=== PATIENT | male | born 1970 ===

== ENCOUNTER 2025-02-12 15:39 | Emergency (ER) | payer OTHER ==
[~2025-02-12] VITALS: Ht 188 cm; Wt 112.9 kg
[2025-02-12 16:25] VITALS: BP 145/82
[2025-02-12 18:21] LABS: Source, Urine Clean Catch
[2025-02-12 18:29] LABS: Bilirubin, Urine Neg (Neg); Glucose Qualitative, Urine Neg (Neg); Ketones, Urine Neg (Neg); Leukocyte Esterase, Urine 2+ (Neg); Protein, Urine 3+ (Neg); Specific Gravity, Urine 1.015 (1.003-1.022); Urobilinogen, Urine NORM (Normal)
[2025-02-12 18:36] LABS: Color, Urine Yellow (P-Yellow)
[2025-02-12 18:37] LABS: Red Blood Cells, Urine TNTC /hpf (0-2)
== END 2025-02-12 19:48 | disposition home or self-care (01) ==
LOC: ER 15:39
PROVIDERS: Emergency Medicine
DX: T83.091A Other mechanical complication of indwelling urethral catheter, initial encounter (principal); Z88.5 Allergy status to narcotic agent
CPT/HCPCS: 51700; 81001; 99283-25

== ENCOUNTER 2025-05-17 05:58 | Day surgery (SDC) | payer OTHER ==
[~2025-05-17] VITALS: Ht 185 cm; Wt 109.3 kg
[2025-05-17] VITALS (10 sets, daily range): BP systolic 136–167; BP diastolic 97–110
[~2025-05-17 05:58] MED LIST: ACET325 PO; ADCIRCA20 MG PO; ALBU90OI INH; ATOR80 PO; IBUP800 PO; LOSA50 PO; MULTI-VITAMIN1 EAC2 PO; OMEP20ER PO; PHENA200 PO; SOLI5 PO; TRAZ50 PO
[2025-05-17] MEDS ORDERED: Diovan320 MG PO (06:27)
[2025-05-17] MEDS ORDERED: CeFAZolin Sodium 2,000 MG in NS 100 ML IV SCH (06:45)
--- NOTE | 2025-05-17 07:03 | NUR ---
Ambulatory in Day Surgery History, Chart, Medications and Allergies reviewed before start of procedure.Patient confirms NPO status and agrees with scheduled surgery. Patient reports completing Chlorhexadine shower X2 prior to admission to hospital.Surgical site prepped with 2% Chlorhexidine cloth wipe. Patient States Post-Procedure ride home has been arranged WITH DAD. BP HIGH, REPORTED TO [place], NO NEW ORDERS.
[2025-05-17] MEDS ORDERED: Bupivacaine 0.5% HCl 5 MG/ML 30MLVIAL ONE (07:07)
[2025-05-17] MEDS ORDERED: FentaNYL Citrate 50 MCG/ML 2 ML Injection ONE (07:16)
[2025-05-17] MEDS ORDERED: Ondansetron HCl 2 MG / ML 2ML Vial ONE (07:18)
[2025-05-17] MEDS ORDERED: Dexamethasone Sod Phos 10 MG/ML 1ML VIAL ONE (07:18)
[2025-05-17] MEDS ORDERED: HYDROmorphone HCl/Pf 1MG SYR IV PRN (07:25)
[2025-05-17] MEDS ORDERED: Ondansetron HCl 2 MG / ML 2ML Vial IV PRN (07:25)
[2025-05-17] MEDS ORDERED: Labetalol HCL 5 MG/ML 4ML Injection (Single Dose) IV PRN (07:25)
[2025-05-17] MEDS ORDERED: FentaNYL Citrate 50 MCG/ML 2 ML Injection IV PRN ×3 (07:25→07:30)
[2025-05-17] MEDS ORDERED: Bupivacaine 0.5% HCl 5 MG/ML 30MLVIAL INJ ONE ×2 (07:56)
[2025-05-17] MEDS ORDERED: OxyCODONE 5 mg/Acetamin 325 mg TABLET PO PRN (08:35)
--- NOTE | 2025-05-17 09:49 | NUR ---
Patient up to Ambulate independently. Gait steady. Discharge instructions reviewed with patient. Patient verbalizes understanding. Copy given to patient to take home. Pt's parents in waiting area, state are providing transporation home. Dressing to procedure site clean, dry, intact with no visible drainage, swelling, erythema or bruising noted. Patient States Post-Procedure ride home has been arranged. Discharged via wheelchair to private car for ride home.
[2025-05-17] MEDS ORDERED: SOLI5 PO (21:42)
[2025-05-17] MEDS ORDERED: Percocet 5-3251 EACH PO (21:44)
[2025-05-18] MEDS ORDERED: Aspir 8181 MG PO (16:15)
== END 2025-05-17 23:32 | disposition home or self-care (01) ==
LOC: ORSCMMR 05:58 → ORD 07:30 → ORSCMMR 07:30
PROVIDERS: Surgery
PROC: 0JH60WZ Insertion of Totally Implantable Vascular Access Device into Chest Subcutaneous Tissue and Fascia, Open Approach (ICD-10-PCS; principal; 2025-05-17 07:30)
DX: C67.8 Malignant neoplasm of overlapping sites of bladder (principal); E78.49 Other hyperlipidemia; I73.00 Raynaud's syndrome without gangrene; I15.9 Secondary hypertension, unspecified; G47.33 Obstructive sleep apnea (adult) (pediatric); Z79.899 Other long term (current) drug therapy; Z87.891 Personal history of nicotine dependence
CPT/HCPCS: 77001; A9270; C1788; J0690; J1100; J1642; J2405; J2704; J3010; J7120

== ENCOUNTER 2025-05-17 13:53 | Observation (INO) | payer OTHER ==
[~2025-05-17] VITALS: Ht 188 cm; Wt 110.6 kg
[~2025-05-17 13:53] MED LIST changes: +Diovan320 MG PO
[2025-05-17 17:18] LABS: BASOPHILS ABSOLUTE AUTO 0.04 K/mm3 (0.00-0.23); BASOPHILS PERCENT AUTO 0 % (0-2); EOSINOPHILS ABSOLUTE AUTO 0.00 K/mm3 (0.00-0.68); EOSINOPHILS PERCENT AUTO 0 % (0-6); Hematocrit 36.5 % (37.0-53.0); Hemoglobin 12.2 g/dL (13.5-17.5); IMMATURE GRAN ABSOLUTE AUTO 0.03 K/mm3 (0.00-0.10); IMMATURE GRAN PERCENT AUTO 0 % (0-1); LYMPHOCYTES ABSOLUTE AUTO 1.09 K/mm3 (0.84-5.20); LYMPHOCYTES PERCENT AUTO 9 % (21-46); MONOCYTES ABSOLUTE AUTO 0.27 K/mm3 (0.16-1.47); MONOCYTES PERCENT AUTO 2 % (4-13); Mean Corpuscular HGB Conc 33.4 g/dL (31.5-36.5); Mean Corpuscular Volume 92 fL (80-100); NEUTROPHILS ABSOLUTE AUTO 10.54 K/mm3 (1.96-9.15); NEUTROPHILS PERCENT AUTO 88 % (41-73); NRBC ABSOLUTE 0.00 K/mm3 (0.00-0.02); NRBC Auto 0.0 /100 WBC (0.0-0.2); Platelet Count 281 K/mm3 (150-400); RDW Coefficient Variation 12.2 % (11.7-14.2); RDW Standard Deviation 41.6 fL (35.1-46.3)
[2025-05-17 17:34] LABS: Alanine Aminotransfer (ALT/SGP 42.0 U/L (12-78); Albumin, Blood 3.4 g/dL (3.4-5.0); Albumin/Globulin Ratio 0.8 (0.8-1.8); Anion Gap 11.0 mmol/L (3-11); Aspartate Aminotrans (AST/SGOT 26.0 U/L (12-37); Bilirubin, Total 0.4 mg/dL (0.1-1.0); Blood Urea Nitrogen 19.0 mg/dL (8-24); CO2, Blood 25.0 mmol/L (21-32); Calcium, Blood 9.1 mg/dL (8.5-10.1); Chloride, Blood 103.0 mmol/L (98-108); Creatinine, Blood 1.37 mg/dL (0.60-1.20); Globulin, Blood 4.2 g/dL (2.2-4.0); Glucose, Blood 135.0 mg/dL (70-99); Potassium, Blood 3.9 mmol/L (3.5-5.5); Sodium, Blood 135.0 mmol/L (136-145); Total Protein, Blood 7.6 g/dL (6.4-8.2)
[2025-05-17 17:43] LABS: Source, Urine Nephrostomy
[2025-05-17 18:05] LABS: Bilirubin, Urine Neg (Neg); Color, Urine Yellow (P-Yellow); Glucose Qualitative, Urine Neg (Neg); Ketones, Urine Neg (Neg); Leukocyte Esterase, Urine 2+ (Neg); Protein, Urine 2+ (Neg); Specific Gravity, Urine 1.010 (1.003-1.022); Urobilinogen, Urine NORM (Normal)
[2025-05-17 18:44] LABS: Red Blood Cells, Urine TNTC /hpf (0-2)
[2025-05-17] MEDS ORDERED: FentaNYL Citrate 50 MCG/ML 2 ML Injection IV PRN (21:00)
[2025-05-17] MEDS ORDERED: CefTRIAXone Sodium 1,000 MG in NS 100 ML IV SCH (21:00)
[2025-05-17] MEDS ORDERED: Ondansetron HCl 2 MG / ML 2ML Vial IV PRN (21:00)
[2025-05-17] MEDS ORDERED: HydrALAZINE HCl 20 MG / ML 1ML Vial IV PRN (21:00)
--- NOTE | 2025-05-17 21:31 | NUR ---
RECEIVED REPORT FROM MERISSA LAMAS. PT WILL BE TRANSFERRED TO MEDICAL FLOOR.
[2025-05-17] MEDS ORDERED: SOLI5 PO (21:42)
[2025-05-17] MEDS ORDERED: Percocet 5-3251 EACH PO (21:44)
[2025-05-17 22:12] VITALS: BP 157/101
--- NOTE | 2025-05-17 22:15 | NUR ---
PT ARRIVED TO FLOOR AROUND 221. ALERT AND ORIENTED. ABLE TO MAKE NEEDS KNOWN. PLEASANT AND COOPERATIVE WITH CARES. PT HAS BILATERAL FLANK NEPHROSTOMY TUBES. INDEPENDENT IN ROOM. REGULAR DIET AT THIS TIME, WILL BE NPO AT MIDNIGHT FOR SURGERY IN THE MORNING. VSS. BED IN LOWEST POSITION. CALL LIGHT IN REACH.
[2025-05-17] MEDS ORDERED: NS 250 ML IV PRN (23:10)
[2025-05-18 00:51] LABS: Hematocrit 34.5 % (37.0-53.0); Hemoglobin 11.7 g/dL (13.5-17.5)
--- NOTE | 2025-05-18 03:54 | NUR ---
SHIFT SUMMARY PT ARRIVED TO FLOOR AT 2215. A&OX4. ABLE TO MAKE NEEDS KNOWN. PLEASANT AND COOPERATIVE WITH CARES. PT HAS HX BLADDER CANCER, PENDING CHEMOTHERAPY TREATMENT. BILATERAL NEPHROSTOMY TUBES IN PLACE. CT SHOWS R MALPOSITIONED NEPHROSTOMY. PT IS NPO. HAS INTERVENTIONAL RADIOLOGY CONSULTATION IN PLACE. PLAN FOR SURGERY IN THE MORNING TO REPOSITION R TUBE. R TUBE DRAINING RED. L TUBE DRAINING CLEAR/YELLOW. INDEPENDENT IN ROOM. LAC PIV. TYLENOL Q4 PRN. VSS. BED IN LOWEST POSITION. CALL LIGHT IN REACH.
[2025-05-18 04:20] VITALS: BP 136/92
[2025-05-18 08:25] VITALS: BP 148/94
[2025-05-18] MEDS ORDERED: NS 250 ML IV ONE (12:14)
--- NOTE | 2025-05-18 12:19 | NUR ---
RIGHT NEPHROSTOMY SITE IS LEAKING SLIGHTLY. TEGADERM REMOVED. CLEANSED, GUAZE AND THEN TEGADERM TO COVER PLACED. DR. BETTENCOURT AT BEDSIDE OBTAINING CONSENT MADE AWARE.
[2025-05-18] MEDS ORDERED: Midazolam HCl 1MG / ML 2ML Vial ONE (12:50)
[2025-05-18] MEDS ORDERED: FentaNYL Citrate 50 MCG/ML 2 ML Injection ONE (12:51)
[2025-05-18] MEDS ORDERED: NS 500 ML IV ONE (12:51)
[2025-05-18] MEDS ORDERED: Aspir 8181 MG PO (16:15)
--- NOTE | 2025-05-18 16:54 | NUR ---
DISCHARGE SUMMARY PT EDUCATED ON DISCHARGE PACKET AND INSTRUCTIONS. NO NEW PRESCRIPTIONS WERE ORDERS. MEDS CLARIFIED WITH PATIENT AND PHARMACIST [facility] IV REMOVED. R NEPHROSTOMY IS DRAINING WITH MILD BLOOD TINGED URINE. LEFT IS STILL WNL. PT DENIES PAIN. ESCORTED DOWN TO EXIT VIA WHEELCHAIR. NO NEW QUESTIONS OR CONCERNS PRIOR TO DC. PT TO FOLLOW UP WITH ONCOLOGIST TOMORROW FOR FIRST CHEMO TREATMENT.
== END 2025-05-18 17:00 | disposition home or self-care (01) ==
LOC: ER 13:53 → ERHOLD 13:54 → MEDS 13:54
PROVIDERS: Emergency Medicine; Nurse Practitioner Acute Care; ADMIT Student in an Organized Health Care Education/Training Program
DX: T83.022A Displacement of nephrostomy catheter, initial encounter (principal); C67.9 Malignant neoplasm of bladder, unspecified; N13.30 Unspecified hydronephrosis; N28.89 Other specified disorders of kidney and ureter; Z79.899 Other long term (current) drug therapy; Z88.5 Allergy status to narcotic agent
CPT/HCPCS: 36415; 74176; 80053; 81001; 85014; 85018; 85025; 87077; 87086; 87186; 96365; 96375; 99152; 99285-25; A9270; C1729; C1769; G0378; J0360; J0696; J2250; J3010; J7040; J7050; Q9967